=== PATIENT | male | born 1980 | race Caucasian/White ===

== ENCOUNTER 2017-11-21 19:48 | Emergency (ER) | payer OTHER ==
[~2017-11-21] VITALS: Ht 172.7 cm; Wt 108.9 kg
[~2017-11-21 19:48] MED LIST: ACETAMINOPHEN-1 EAC1 PO; ACID CONTROL20 MG; AMOXICILLIN 50500 MG PO; AMOXICILLIN875 MG PO; ANTIPYRINE-BENZ10 ML OT; AZITHROMYCIN 2250 MG PO; CARAFATE 1 GM TA1 GM PO; HYDROCODONE-AP1 EAC6 PO; IBUPROFEN 400400 M2 PO; IBUPROFEN 800800 M1 PO; KEFLEX500 MG PO; MEDROLDOSEPACK PO; NOHOMEMEDICATIONS; NORCO 5-325 TA1 EACH PO; ONDANSETRON HCL4 M2 PO; PHENERGAN 25 MG25 M1 PO; PREVACID30 MG PO; PROBIOTIC1 EAC1 PO; PROTONIX40 M1 PO; TRAMADOL 50 MG50 MG PO; ULTRAM 50MG TAB50 MG PO; ZOFRAN ODT4 MG PO; ZYRTEC-D TABLE1 EAC1 PO; [UNRECOGNIZED DRUG - OTHER] PO
[2017-11-21] MEDS ORDERED: IBUPROFEN 200200 M1 PO (20:04)
[2017-11-21 20:14] LABS: URINE BILIRUBIN NEGATIVE (Negative); URINE BLOOD NEGATIVE (Negative); URINE CLARITY CLEAR; URINE COLOR YELLOW; URINE GLUCOSE-RANDOM NEGATIVE (Negative); URINE KETONES NEGATIVE (Negative); URINE LEUKOCYTES-REFLEX NEGATIVE (Negative); URINE NITRITE-REFLEX NEGATIVE (Negative); URINE PROTEIN NEGATIVE (Negative); URINE SPECIFIC GRAVITY <= 1.005 (1.005-1.030); URINE UROBILINOGEN 0.2 E.U./dl (0.2-1.0)
[2017-11-21 20:20] LABS: AMP/METHAMP Negative (Negative); BARBITURATES Negative (Negative); BENZODIAZEPINES Negative (Negative); COCAINE Negative (Negative); METHADONE Negative (Negative); OPIATES Negative (Negative); PCP Negative (Negative); THC Negative (Negative)
[2017-11-21 20:38] LABS: ABSOLUTE BASOPHILS 0.1 thou/uL (0.0-0.2); ABSOLUTE LYMPHOCYTES 1.1 thou/uL (0.8-5.3); ABSOLUTE MONOCYTES 1.1 thou/uL (0.0-1.2); ABSOLUTE NEUTROPHILS 4.3 thou/uL (1.6-8.1); EOSINOPHILS 0.7 %; HEMOGLOBIN 16.1 gm/dL (14.0-18.0); LYMPHOCYTES 16.7 %; MCH 30.5 pg (26.0-34.0); MCHC 34.9 g/dL (28.0-37.0); MCV 87.2 fL (80.0-100.0); MONOCYTES 16.5 %; MPV 9.9 fl. (7.2-11.1); NUCLEATED RBCS 0 /100WBC; PLATELET COUNT* 143 thou/uL (150-400); POLYS 65.1 %; RBC 5.28 mil/uL (4.50-6.00); RDW-CV 12.8 % (10.5-14.5); WBC 6.5 thou/uL (4.0-11.0)
[2017-11-21 20:45] LABS: CREATININE 1.1 mg/dL (0.6-1.3); POTASSIUM 4.2 mmol/L (3.5-5.1)
[2017-11-21 20:50] LABS: TOTAL PROTEIN 7.1 g/dL (6.4-8.2)
[2017-11-21] MEDS ORDERED: MEDROLDOSEPACK PO (21:09)
[2017-11-21] MEDS ORDERED: IBU800 MG PO (21:10)
[2017-11-21 21:25] VITALS: BP 136/80
[2017-11-21 21:28] LABS: INFLUENZA A ANTIGEN None Detected (None Detect); INFLUENZA B ANTIGEN None Detected (None Detect)
== END 2017-11-21 21:25 | disposition home or self-care (01) ==
LOC: M.ERS 19:48
PROVIDERS: Nurse Practitioner
DX: B34.9 Viral infection, unspecified (principal); K21.9 Gastro-esophageal reflux disease without esophagitis; Z90.49 Acquired absence of other specified parts of digestive tract

== ENCOUNTER 2017-12-26 18:10 | Emergency (ER) | payer OTHER ==
[~2017-12-26] VITALS: Ht 172.7 cm; Wt 106.6 kg
[~2017-12-26 18:10] MED LIST changes: +IBU800 MG PO; +IBUPROFEN 200200 M1 PO
[2017-12-26 18:49] LABS: URINE BILIRUBIN NEGATIVE (Negative); URINE BLOOD NEGATIVE (Negative); URINE CLARITY CLEAR; URINE COLOR YELLOW; URINE GLUCOSE-RANDOM NEGATIVE (Negative); URINE KETONES NEGATIVE (Negative); URINE LEUKOCYTES-REFLEX NEGATIVE (Negative); URINE NITRITE-REFLEX NEGATIVE (Negative); URINE PROTEIN NEGATIVE (Negative); URINE SPECIFIC GRAVITY <= 1.005 (1.005-1.030); URINE UROBILINOGEN 0.2 E.U./dl (0.2-1.0)
[2017-12-26 19:04] LABS: ABSOLUTE BASOPHILS 0.1 thou/uL (0.0-0.2); ABSOLUTE EOSINOPHILS 0.3 thou/uL (0.0-0.7); ABSOLUTE LYMPHOCYTES 3.5 thou/uL (0.8-5.3); ABSOLUTE MONOCYTES 0.9 thou/uL (0.0-1.2); ABSOLUTE NEUTROPHILS 5.5 thou/uL (1.6-8.1); EOSINOPHILS 2.8 %; HEMATOCRIT 47.2 % (42.0-52.0); HEMOGLOBIN 16.5 gm/dL (14.0-18.0); LYMPHOCYTES 34.3 %; MCH 30.9 pg (26.0-34.0); MCV 88.1 fL (80.0-100.0); MONOCYTES 8.7 %; MPV 10.7 fl. (7.2-11.1); NUCLEATED RBCS 0 /100WBC; PLATELET COUNT* 221 thou/uL (150-400); POLYS 53.2 %; RBC 5.36 mil/uL (4.50-6.00); RDW-CV 13.1 % (10.5-14.5); WBC 10.3 thou/uL (4.0-11.0)
[2017-12-26 19:09] LABS: CALCIUM 9.4 mg/dL (8.5-10.1); CREATININE 0.9 mg/dL (0.6-1.3); POTASSIUM 3.8 mmol/L (3.5-5.1)
[2017-12-26 19:13] LABS: ALBUMIN 4.2 g/dL (3.4-5.0); TOTAL BILIRUBIN 0.4 mg/dL (<0.1-1.0); TOTAL PROTEIN 7.4 g/dL (6.4-8.2)
[2017-12-26] MEDS ORDERED: HYDROCODONE-AP1 EAC6 PO (19:45)
[2017-12-26] MEDS ORDERED: IBUPROFEN 800800 M1 PO (19:45)
[2017-12-26 20:13] VITALS: BP 121/82
== END 2017-12-26 20:14 | disposition home or self-care (01) ==
LOC: M.ERS 18:10
PROVIDERS: Physician Assistant
DX: R10.9 Unspecified abdominal pain (principal); R74.8 Abnormal levels of other serum enzymes; M43.06 Spondylolysis, lumbar region; K21.9 Gastro-esophageal reflux disease without esophagitis; Z90.49 Acquired absence of other specified parts of digestive tract

== ENCOUNTER 2020-09-23 22:38 | Emergency (ER) | payer OTHER ==
[~2020-09-23] VITALS: Ht 175.3 cm; Wt 106.6 kg
[2020-09-23] MEDS ORDERED: BACTRIM DS TAB1 EAC1 PO (23:40)
[2020-09-23 23:53] VITALS: BP 133/87
== END 2020-09-23 23:53 | disposition home or self-care (01) ==
LOC: M.ERS 22:38
DX: L03.213 Periorbital cellulitis (principal); K21.9 Gastro-esophageal reflux disease without esophagitis; Z90.49 Acquired absence of other specified parts of digestive tract; Z79.899 Other long term (current) drug therapy